=== PATIENT | male | born 1990 ===

== ENCOUNTER 2019-07-06 16:12 | Emergency (ER) | payer SELFPAY ==
[2019-07-06 16:22] VITALS: BP 145/54; PULSE 55; RESP 16; TEMP 36.9; O2SAT 99; BMI 28.1
[2019-07-06 16:40] LABS: Basophils % 0.3 %; Eosinophils # 0.1 10^3/uL (0.0-0.8); Eosinophils % 1.1 %; Hematocrit 43.5 % (42.0-52.0); Hemoglobin 14.1 g/dL (11.7-16.6); Lymphocytes # 1.4 10^3/uL (0.8-4.8); Lymphocytes % 21.5 %; Mean Corpuscular HGB Conc 32.4 g/dL (30.0-36.0); Mean Corpuscular Hemoglobin 30.3 pg (28.0-34.0); Mean Corpuscular Volume 93.3 fL (80-94); Mean Platelet Volume 10.9 fL (7.4-10.4); Monocytes # 0.5 10^3/uL (0.2-0.9); Monocytes % 6.9 %; Neutrophils # 4.6 10^3/uL (1.8-7.7); Neutrophils % 69.9 %; Nucleated Red Blood Cells % 0 %; Platelet Count 211 10^3/cmm (130-400); Red Blood Count 4.66 10^6/uL (4.1-5.3); Red Cell Distribution Width 13.2 % (12.1-15.1); White Blood Count 6.5 10^3/uL (4.0-10.0)
[2019-07-06 16:43] VITALS: O2SAT 97
--- NOTE | 2019-07-06 16:45 | PC.NURSE ---
Patient given urinal and advised to collect urine sample
--- NOTE | 2019-07-06 16:47 | ED_ITS ---
Entered by Michelle Roca, acting as scribe for Nilson Mc DO Documented by User: KANDICE Villegas 07/06/19 18:27 HPI - Abdominal Pain General: Chief Complaint: Abdominal Pain Stated Complaint: Lower abd pains Time Seen by Provider: 07/06/19 17:14 Source: patient Mode of arrival: ambulatory Limitations: no limitations History of Present Illness: HPI narrative: Patient was referred to the emergency room from urgent care for concerns of right lower quadrant pain. Patient denies fever, nausea vomiting, or diarrhea. Patient reports that the pain started this afternoon radiates from the back into the groin. Patient appears mildly unwell. Patient appears in mild pain. Review of Systems General: Reports: 10 or more systems reviewed and unremarkable except in HPI and below GI: Reports: abdominal pain [facility] ED PFSH: Social History (Updated 07/06/19 @ 15:47 by Shruti Cotter LPN) Smoking and tobacco status: never smoked Alcohol intake: never Physical Exam Const: COMMON NORMALS: no apparent distress and oriented x3 GENERAL APPEARANCE: cooperative HENMT: COMMON NORMALS: normocephalic, external ears normal, EAC's normal, TM's normal bilaterally and external nose normal HEAD & SCALP: normal to inspection and normocephalic FACE & SINUS: normal facial exam NOSE: external nose normal GENERAL EAR: hearing not grossly impaired EXTERNAL EAR: Yes external ears normal EXTERNAL AUDITORY CANAL: EAC's normal TYMPANIC MEMBRANE: TM's normal bilaterally MOUTH: oral and palatal mucosa normal THROAT: posterior oropharynx normal Eye: COMMON NORMALS: PERRL and EOMs intact bilaterally PUPIL: Yes PERRL Neck/C-Spine: COMMON NORMALS: full ROM and no lymphadenopathy Lymph: LYMPHATIC: no lymphedema noted Chest: COMMONS NORMALS: inspection of chest normal and palpation of chest normal Resp: COMMON NORMALS: normal respiratory effort and clear to auscultation bilaterally AUSCULTATION: clear to auscultation bilaterally Cardio: COMMON NORMALS: regular rate and regular rhythm RATE: regular rate RHYTHM: regular rhythm GI: AUSCULTATION: Yes normoactive bowel sounds PALPATION: Yes tender Details: RLQ (tenderness) : COMMON NORMALS: Yes no CVA tenderness BLADDER/KIDNEY EXAM: Yes no CVA tenderness Back/Pelvis: COMMON NORMALS: no CVA tenderness and thoracic and lumbar spine normal to inspection Extremity: COMMON NORMALS: normal to inspection GENERAL: No edema Neuro: COMMON NORMALS: oriented x3, moves all extremities and no focal motor deficits Psych: COMMON NORMALS: mental status grossly normal and cooperative Skin: COMMON NORMALS: no rashes or lesions noted GENERAL SKIN EXAM: no rashes or lesions noted Course Vital Signs: Vital signs: Vital Signs Temperature 98.5 F 07/06/19 16:22 Pulse Rate 75 07/06/19 18:29 Respiratory Rate 16 07/06/19 18:29 Blood Pressure 125/75 07/06/19 18:29 Pulse Oximetry 98 07/06/19 18:29 MDM - Abdominal Pain MDM Narrative: Medical decision making narrative: Patient comes in today for complaints of right lower quadrant abdominal pain. Patient denies any fever nausea and vomiting. Patient appears mildly unwell. Exam notes abdomen soft with some tenderness in the right lower quadrant. Bowel sounds are present. Respirations are even vital signs are normal. Differential diagnosis includes gastroenteritis, appendicitis, bowel obstruction, colitis, renal calculi. Laboratory values were noted to have a normal white blood cell count and normal liver enzymes and metabolic panel. CT scan of the abdomen and pelvis noted colitis with large amount of stool in the bowel. Reviewed with patient with recommendations for treatment of colitis. Patient reports understanding. Lab Data: Labs: Lab Results 07/06/19 07/06/19 07/06/19 Range/Units 16:30 16:30 18:01 WBC 6.5 (4.0-10.0) 10^3/ uL RBC 4.66 (4.1-5.3) 10^6/u L Hgb 14.1 (11.7-16.6) g/dL Hct 43.5 (42.0-52.0) % MCV 93.3 (80-94) fL MCH 30.3 (28.0-34.0) pg MCHC 32.4 (30.0-36.0) g/dL RDW 13.2 (12.1-15.1) % Plt Count 211 (130-400) 10^3/c mm MPV 10.9 H (7.4-10.4) fL Neut % (Auto) 69.9 % Lymph % (Auto) 21.5 % [place] % (Auto) 6.9 % Eos % (Auto) 1.1 % Baso % (Auto) 0.3 % Neut # (Auto) 4.6 (1.8-7.7) 10^3/u L Lymph # (Auto) 1.4 (0.8-4.8) 10^3/u L [place] # (Auto) 0.5 (0.2-0.9) 10^3/u L Eos # (Auto) 0.1 (0.0-0.8) 10^3/u L Baso # (Auto) 0.0 (0.0-0.1) 10^3/u L Nucleated RBC % (a uto) 0 % Nucleated RBCs # 0.0 /100WBC Sodium 137 (136-145) mmol/L Potassium 4.5 (3.5-5.1) mmol/L Chloride 102 (98-107) mmol/L Carbon Dioxide 26 (22-29) mmol/L Anion Gap 13.5 (5-19) BUN 14 (6-20) mg/dL Creatinine 0.9 (0.7-1.2) mg/dL GFR Calculation 101.2 (90-130) mL/min Glucose 86 (65-115) mg/dL Calculated Osmolal ity 280 L (285-295) mOsm/k g Calcium 9.8 (8.5-10.5) mg/dL Total Bilirubin 0.5 (0.15-1.2) mg/dL AST 20 (0-40) U/L ALT 16 (0-41) U/L Alkaline Phosphata se 58 (40-130) IU/L Total Protein 8.2 (6.6-8.7) g/dL Albumin 4.7 (3.5-5.2) g/dL Globulin 3.5 (1.3-4.6) g/dL Lipase 25 (13-60) U/L Urine Color Yellow (Yellow) Urine Appearance Hazy A (CLEAR) Urine pH 8 H (5-7) Ur Specific Gravit y 1.015 (1.005-1.030) Urine Protein Neg (Negative) Urine Glucose (UA) Norm (Normal) Urine Ketones Negative (Negative) Urine Blood Neg (Negative) Urine Nitrate Negative (Negative) Urine Bilirubin Neg (NEGATIVE) Prot Sulfosalicyli c Acd Negative Urine Urobilinogen Norm (Negative) mg/dL Ur Leukocyte Yee ase Negative (Negative) Urine RBC None (0-2) /hpf Urine WBC None (0-5) /hpf Ur Squamous Epith Cells None (0-5) Amorphous Sediment 2+ Urine Bacteria Trace (NONE) Discharge Plan Discharge Patient Disposition: Home, Self-Care Clinical Impression: Colitis Condition: Stable Prescriptions: New ciprofloxacin HCl 500 mg tablet 500 mg PO BID Qty: 14 RF: 0 metronidazole 500 mg tablet 500 mg PO BID 7 Days Qty: 14 RF: 0 No Action Tylenol Extra Strength 500 mg Tablet 1,000 mg PO PRN RF: 0 Discharge Orders: Discharge Order (Routine); Ordered 07/06/19 Ordered By: Benito Granados Discharge Diet: Usual diet Discharge Activity: Increase activity as tolerated Patient Instructions: Infectious Colitis (ED) Activity Restrictions/Additional Instructions: Drink plenty of fluids Activity as tolerated Healthy diet and exercise Follow-up with primary care Return to ER for high fever or blood in stool or vomit Stand Alone Forms: Work/School Release Discharge Date/Time: 07/06/19 18:30 Coding Level of Care Code ED Loan Adviser for Chg Fwd Exam Comprehensive Documented by User: Nilson Mc DO 07/10/19 13:59 HPI - Abdominal Pain General: Chief Complaint: Abdominal Pain Stated Complaint: Lower abd pains Time Seen by Provider: 07/06/19 17:14 PFSH ED PFSH: Social History (Updated 07/06/19 @ 15:47 by Shruti Cotter LPN) Smoking and tobacco status: never smoked Alcohol intake: never Course Vital Signs: Vital signs: Vital Signs Temperature 98.5 F 07/06/19 16:22 Pulse Rate 75 07/06/19 18:29 Respiratory Rate 16 07/06/19 18:29 Blood Pressure 125/75 07/06/19 18:29 Pulse Oximetry 98 07/06/19 18:29 MDM - Abdominal Pain MDM Narrative: Medical decision making narrative: Discussed case with midlevel agree with assessment and plan Lab Data: Labs: Lab Results 07/06/19 07/06/19 07/06/19 Range/Units 16:30 16:30 18:01 WBC 6.5 (4.0-10.0) 10^3/ uL RBC 4.66 (4.1-5.3) 10^6/u L Hgb 14.1 (11.7-16.6) g/dL Hct 43.5 (42.0-52.0) % MCV 93.3 (80-94) fL MCH 30.3 (28.0-34.0) pg MCHC 32.4 (30.0-36.0) g/dL RDW 13.2 (12.1-15.1) % Plt Count 211 (130-400) 10^3/c mm MPV 10.9 H (7.4-10.4) fL Neut % (Auto) 69.9 % Lymph % (Auto) 21.5 % [place] % (Auto) 6.9 % Eos % (Auto) 1.1 % Baso % (Auto) 0.3 % Neut # (Auto) 4.6 (1.8-7.7) 10^3/u L Lymph # (Auto) 1.4 (0.8-4.8) 10^3/u L [place] # (Auto) 0.5 (0.2-0.9) 10^3/u L Eos # (Auto) 0.1 (0.0-0.8) 10^3/u L Baso # (Auto) 0.0 (0.0-0.1) 10^3/u L Nucleated RBC % (a uto) 0 % Nucleated RBCs # 0.0 /100WBC Sodium 137 (136-145) mmol/L Potassium 4.5 (3.5-5.1) mmol/L Chloride 102 (98-107) mmol/L Carbon Dioxide 26 (22-29) mmol/L Anion Gap 13.5 (5-19) BUN 14 (6-20) mg/dL Creatinine 0.9 (0.7-1.2) mg/dL GFR Calculation 101.2 (90-130) mL/min Glucose 86 (65-115) mg/dL Calculated Osmolal ity 280 L (285-295) mOsm/k g Calcium 9.8 (8.5-10.5) mg/dL Total Bilirubin 0.5 (0.15-1.2) mg/dL AST 20 (0-40) U/L ALT 16 (0-41) U/L Alkaline Phosphata se 58 (40-130) IU/L Total Protein 8.2 (6.6-8.7) g/dL Albumin 4.7 (3.5-5.2) g/dL Globulin 3.5 (1.3-4.6) g/dL Lipase 25 (13-60) U/L Urine Color Yellow (Yellow) Urine Appearance Hazy A (CLEAR) Urine pH 8 H (5-7) Ur Specific Gravit y 1.015 (1.005-1.030) Urine Protein Neg (Negative) Urine Glucose (UA) Norm (Normal) Urine Ketones Negative (Negative) Urine Blood Neg (Negative) Urine Nitrate Negative (Negative) Urine Bilirubin Neg (NEGATIVE) Prot Sulfosalicyli c Acd Negative Urine Urobilinogen Norm (Negative) mg/dL Ur Leukocyte Yee ase Negative (Negative) Urine RBC None (0-2) /hpf Urine WBC None (0-5) /hpf Ur Squamous Epith Cells None (0-5) Amorphous Sediment 2+ Urine Bacteria Trace (NONE) Discharge Plan Discharge Patient Disposition: Home, Self-Care Clinical Impression: Colitis Condition: Stable Prescriptions: New ciprofloxacin HCl 500 mg tablet 500 mg PO BID Qty: 14 RF: 0 metronidazole 500 mg tablet 500 mg PO BID 7 Days Qty: 14 RF: 0 No Action Tylenol Extra Strength 500 mg Tablet 1,000 mg PO PRN RF: 0 Discharge Orders: Discharge Order (Routine); Ordered 07/06/19 Ordered By: Benito Granados Discharge Diet: Usual diet Discharge Activity: Increase activity as tolerated Patient Instructions: Infectious Colitis (ED) Activity Restrictions/Additional Instructions: Drink plenty of fluids Activity as tolerated Healthy diet and exercise Follow-up with primary care Return to ER for high fever or blood in stool or vomit Stand Alone Forms: Work/School Release Discharge Date/Time: 07/06/19 18:30 Coding Level of Care Code ED Loan Adviser for Chg Fwd Exam Comprehensive The documentation recorded by the Abelino day Bridget Annette, accurately reflects the service I personally performed and the decisions made by Alexandro colon Curtis L, DO Jul 06, 2019 16:12
[2019-07-06 17:07] LABS: Alanine Aminotransferase 16 U/L (0-41); Albumin Level 4.7 g/dL (3.5-5.2); Alkaline Phosphatase 58 IU/L (40-130); Anion Gap 13.5 (5-19); Aspartate Amino Transferase 20 U/L (0-40); Blood Urea Nitrogen 14 mg/dL (6-20); Calcium 9.8 mg/dL (8.5-10.5); Carbon Dioxide 26 mmol/L (22-29); Chloride 102 mmol/L (98-107); Globulin 3.5 g/dL (1.3-4.6); Glomerular Filtration Rate 101.2 mL/min (90-130); Glucose 86 mg/dL (65-115); Lipase 25 U/L (13-60); Osmolality Calculated 280 mOsm/kg (285-295); Potassium 4.5 mmol/L (3.5-5.1); Sodium 137 mmol/L (136-145); Total Bilirubin 0.5 mg/dL (0.15-1.2); Total Protein 8.2 g/dL (6.6-8.7)
--- NOTE | 2019-07-06 17:21 | CTR_ITS ---
PROCEDURE INFORMATION: Exam: CT Abdomen And Pelvis With Contrast Exam date and time: 07/06/2019 5:30 PM Age: 29 years old Clinical indication: Abdominal pain; Generalized; Additional info: Abd pain TECHNIQUE: Imaging protocol: Computed tomography of the abdomen and pelvis with intravenous contrast. Total DLP: 656.27 mGy-cm Radiation optimization: All CT scans at this facility use at least one of these dose optimization techniques: automated exposure control; mA and/or kV adjustment per patient size (includes targeted exams where dose is matched to clinical indication); or iterative reconstruction. Contrast material: OMNIPAQUE 300; Contrast volume: 95 ml; Contrast route: IV; COMPARISON: No relevant prior studies available. FINDINGS: Mediastinum: A small hiatal hernia is present. Liver: Unremarkable.No mass. Gallbladder and bile ducts: Normal. No calcified stones. No ductal dilation. Pancreas: Normal. No ductal dilation. Spleen: Normal. No splenomegaly. Adrenals: Normal. No mass. Kidneys and ureters: There is no evidence of hydronephrosis. There is no evidence of renal calcifications. Stomach and bowel: There is diffuse wall thickening in the colon compatible with mild diffuse colitis. This wall thickening does appear to spare the cecum proximal to the ileocecal bowel best appreciated series 2 image 44 through 52. There is no ileus or obstruction. Some of the loops of distal small bowel are filled with fluid with some mild wall enhancement compatible with very mild enteritis. No bowel obstruction. There is a frothy appearance with some air bubbles in the periphery of the cecum. This gives the appearance of pneumatosis such is image 46 but there is also focal collection of stool within the cecum and this is favored to be air surrounding stool rather than definite pneumatosis. The wall of this portion of the cecum is not as thickened as the remainder of the colon. There is no portal venous gas, no free air and no additional findings to suggest bowel ischemia. Note is also made that there is no induration of the adjacent mesenteric fat. There is a small bowel feces sign in the adjacent terminal ileum which is also filled with some fluid density stool. Appendix: A normal appendix is identified. Intraperitoneal space: Unremarkable. No free air. No significant fluid collection. Vasculature: Unremarkable.No abdominal aortic aneurysm. Lymph nodes: Unremarkable.No enlarged lymph nodes. Bladder: Unremarkable as visualized. Reproductive: Unremarkable as visualized. Bones/joints: Unremarkable. No acute fracture. Soft tissues: There is a fat-containing umbilical hernia. CT/CT abdomen pelvis w con* [id number] IMPRESSION: 1. There is diffuse wall thickening in the colon compatible with mild diffuse colitis involving the entire colon except for the proximal cecum. 2. Frothy appearance of a short segment of the proximal cecum with tiny peripheral air bubbles that gives the appearance of pneumatosis however this appears may actually be some air bubbles surrounding some stool within this segment of colon. This particular segment of colon does not demonstrate any wall thickening or adjacent induration of the mesenteric fat. There is stool in the lumen of this portion of the colon. Just distal to this, there is wall thickening of the remaining colon compatible with colitis. There is no portal venous gas or free air and no additional findings to suggest bowel infarction or ischemia. Radiation Dose CTDIVOL = (mGy): DLP = 656.27 (mGy-cm)
[2019-07-06] MEDS: iohexol 300 mg/mL 100 mL Btl IV (17:33)
[2019-07-06 18:29] VITALS: BP 125/75; PULSE 75; RESP 16; O2SAT 98
[2019-07-06] MEDS: metroNIDAZOLE 500 MG Tablet PO (18:29)
[2019-07-06] MEDS: ciprofloxacin 500 mg Tablet PO (18:29)
[2019-07-06 18:36] LABS: Bilirubin Urine Neg (NEGATIVE); Blood Urine Neg (Negative); Glucose Urine UA Norm (Normal); Ketones Urine Negative (Negative); Nitrate Urine Negative (Negative); Protein Urine Neg (Negative); Specific Gravity, Urine 1.015 (1.005-1.030); Sulfosalicylic Acid Urine Negative; Urine Appearance Hazy (CLEAR); Urine Color Yellow (Yellow); Urobilinogen Urine Norm (Negative); pH Urine 8 (5-7)
[2019-07-06 18:37] LABS: Add Urine Culture? No; Add Urine Microscopic? YES; Amorphous Sediment Urine 2+; Bacteria Urine TRACE; Leukocyte Esterase Urine Negative (Negative)
== END 2019-07-06 18:30 | disposition home or self-care (01) ==
PROVIDERS: Emergency Medicine; Emergency Provider Nurse Practitioner Family
DX: K52.9 Noninfective gastroenteritis and colitis, unspecified (principal)
CPT/HCPCS: 12345; 36415; 74177; 80053; 81001; 83690; 85025; 99282; 99283; Q9967

== ENCOUNTER 2019-11-05 16:16 | Emergency (ER) | payer SELFPAY ==
--- NOTE | 2019-11-05 16:37 | XR_ITS ---
WS: [id number] Left ankle, 3 views, 11/05/2019 Clinical Data: injury/pain Comparison: None. Findings: No fractures or dislocations are seen. The ankle mortise is normal. The talus and calcaneus are unrem arkable. No soft tissue swelling over the medial or lateral malleolus is seen. XR/XR ankle LT min 3V* [id number] Impression: Negative left ankle.
[2019-11-05 16:58] VITALS: BP 135/73; PULSE 54; RESP 14; TEMP 37.1; O2SAT 100; BMI 27.6
--- NOTE | 2019-11-05 18:01 | W.ED.EXTPRO ---
HPI - Extremity Problem General: Chief complaint: Extremity Injury, Lower Stated complaint: L ANKLE INJURY Time Seen by Provider: 11/05/19 17:47 History of Present Illness: HPI Narrative: Patient complains about left foot pain after stepping down off of a higher area has been going on for about 4 weeks is not improved Complaint: extremity pain Onset (ago): week(s) Pain Consistency: constant Location: left and lower extremity Severity scale (1-10): 4 Quality: aching Radiation: none Relieving factors: rest Exacerbating factors: range of motion and weight bearing Associated symptoms: Reports no associated symptoms; Deny chest pain, fever(s) or rash Review of Systems Const: Denies: fever(s), chills or body aches Eyes: Denies: change in vision or blurry vision ENMT: Denies: throat pain or nasal congestion Card: Denies: chest pain or dyspnea on exertion Resp: Denies: dyspnea, productive cough or non-productive cough GI: Denies: abdominal pain, nausea or vomiting : Denies: difficulty urinating Musc: Reports: extremity pain (Left foot lateral area after stepping down and hurting it 4 weeks ago) Skin/Breast: Denies: rash Neuro: Denies: headache(s) Psych: Denies: anxiety or depression Lemuel/Lymph: Denies: easy bruising PFS ED PFSH: Social History (Updated 07/06/19 @ 15:47 by Shruti Cotter LPN) Smoking and tobacco status: never smoked Alcohol intake: never Physical Exam Const: COMMON NORMALS: no acute distress, average body habitus and patient oriented x3 HENMT: COMMON NORMALS: normocephalic HEAD & SCALP: normal to inspection and normocephalic FACE & SINUS: normal facial exam Eye: COMMON NORMALS: conjunctivae normal GENERAL EYE: appearance normal, both eyes and all related structures CONJUNCTIVA: Yes conjunctivae normal Neck/C-Spine: COMMON NORMALS: no JVD Chest: COMMONS NORMALS: normal inspection of the chest Resp: COMMON NORMALS: normal respiratory effort Cardio: COMMON NORMALS: no JVD GI: COMMON NORMALS: Normal to inspection, nondistended, normoactive bowel sounds present Extremity: COMMON NORMALS: normal to inspection and full ROM LEFT LOWER EXTREMITY: Yes foot & digits (Pain left lateral midfoot area no swelling noted does ambulate but does have a limp. Neurovascular status intact no swelling noted) Neuro: COMMON NORMALS: patient oriented x3 Course Vital Signs: Vital signs: Vital Signs Temperature 98.7 F 11/05/19 16:58 Pulse Rate 54 L 11/05/19 16:58 Respiratory Rate 14 11/05/19 16:58 Blood Pressure 135/73 11/05/19 16:58 Pulse Oximetry 100 11/05/19 16:58 Discharge Plan Discharge Patient Disposition: Home Clinical Impression: Sprain of foot, left Qualifiers: Encounter type: initial encounter Qualified Code(s): S93.602A - Unspecified sprain of left foot, initial encounter Condition: Stable Prescriptions: No Action Tylenol Extra Strength 500 mg Tablet 1,000 mg PO PRN RF: 0 ciprofloxacin HCl 500 mg tablet 500 mg PO BID Qty: 14 RF: 0 Discharge Orders: Discharge Order (Routine); Ordered 11/05/19 Ordered By: Emanuel Anton Discharge Diet: Usual diet Discharge Activity: Increase activity as tolerated Patient Instructions: Foot Sprain (ED) Activity Restrictions/Additional Instructions: Follow-up your primary care provider see about getting CT or MRI if the foot pain does not improve take ibuprofen 4 to 600 mg 4 times a day ice foot down wear stiff soled shoes Coding Level of Care Code ED Superintendent Renting Managing for Kristal Cabrera
== END 2019-11-05 18:03 | disposition home or self-care (01) ==
PROVIDERS: Emergency Provider Nurse Practitioner Family
DX: S93.602A Unspecified sprain of left foot, initial encounter (principal); X58.XXXA Exposure to other specified factors, initial encounter
CPT/HCPCS: 12345; 73610; 99282